=== PATIENT | female | born 1995 | race Caucasian/White ===

== ENCOUNTER 2016-07-11 22:03 | Emergency (ER) | payer BC ==
[~2016-07-11] VITALS: Ht 170.2 cm; Wt 69.5 kg
[2016-07-11 22:05] VITALS: TEMP 36.9; Ht 170.2 cm; Wt 69.5 kg
[2016-07-11] MEDS ORDERED: XYLOCAINE 1%/SOD BICARB 20 ML VIAL INFIL ONE (22:11)
[2016-07-11] MEDS ORDERED: BCPILLS PO (22:57)
[2016-07-11 23:03] VITALS: BP 141/72; PULSE 71; O2SAT 94
--- NOTE | 2016-07-11 23:23 | EMERGENCY ROOM VISIT NOTE ---
History First contact with patient: 22:42 Chief Complaint: LACERATION/CUT (SUT/DERMABOND) Stated Complaint: CUT LEFT HAND Nursing Triage Summary: Patient states "I was trying to get the pit out of the avacodo and the knife went the wrong way". Sustained laceration to left hand. History of Present Illness The patient is a 21 year old female who presents to the Emergency Room with complaints of a laceration between her index and long finger. She was attempting to use a butter knife to pit an avocado and accidentally stabbed herself. The patient denies any significant bleeding, paresthesias or numbness of the hand or fingers. Tetanus immunization is up-to-date. The patient is [id number]. She rates her discomfort a 3 out of 10. Review of Systems 6 system review was performed and was negative except for pertinent positives and negatives as indicated in history of present illness Past Medical/Surgical History Medical Problems: (1) No significant past medical history Surgical Problems: (1) No history of previous surgery Family History Unremarkable Social History Smoking Status: Never Smoker Alcohol Use: none Marital Status: single Occupation Status: [employer] student Current/Historical Medications Scheduled Control Pills ( Control Pills), 1 TAB PO QAM Allergies Coded Allergies: No Known Allergies (Unverified , 07/11/16) Physical Exam Vital Signs Date Time Temp Pulse Resp B/P Pulse Ox O2 Delivery O2 Flow Rate FiO2 07/11/16 23:03 71 20 141/72 94 07/11/16 22:05 36.9 65 20 135/75 96 Room Air Pain Rating (0-10): 0 Physical Exam CONSTITUTIONAL: Healthy and well nourished. Alert and oriented X 3 with positive affect. HEENT: Normocephalic, atraumatic. Pupils equal, round and reactive. MUSCULOSKELETAL: Examination of the left hand shows a 1.5 cm laceration in the webspace between the second and third finger. No active bleeding noted. The patient has good flexion and extension against resistance. INTEGUMENTARY: No rash or other significant dermatologic conditions noted. NEUROLOGIC: Left second and third fingers are sensory intact. Medical Decision & Procedures Procedure Laceration repair was performed under local anesthesia after receiving verbal consent from the patient. Using buffered 1% lidocaine without epinephrine, good local anesthesia was administered. During this procedure, the patient did have a syncopal episode. She was placed in a reverse Trendelenburg position with prompt resolution. The wound was cleansed peripherally with iodine, then copiously pressure irrigated with normal saline. The wound was then approximated using 5-0 nylon simple interrupted sutures. A bacitracin dressing was applied. ED Course Patient history and physical exam were performed. Nurse's notes were reviewed. Laceration repair was performed under local anesthesia. The patient did have a syncopal episode but responded nicely to a reverse Trendelenburg position. The patient was provided additional verbal and written wound care instructions. Ice for swelling. Ibuprofen or Tylenol as needed for pain. Suture removal in 12-14 days, or seek reevaluation sooner for any signs of wound infection. The patient was happy with plan of care, voice understanding of all discharge instructions, and denied any pain, nausea, dizziness or headache at the time of discharge. Medical Decision Impression Primary Impression: Laceration of left hand Additional Impression: Syncope, vasovagal Departure Information Dispostion Home / Self-Care Forms HOME CARE DOCUMENTATION FORM, IMPORTANT VISIT INFORMATION Patient Instructions [facility] Additional Instructions Keep wound clean and dry. Do not allow any crusting or dried blood to accumulate on sutures. If this occurs, use a 1:1 solution of hydrogen peroxide/ water on a Q-tip to clean the wound. Use an antibiotic ointment for 3-4 days, then let wound dry. Suture removal in 12-14 days. Return sooner for any signs of infection (increasing redness, swelling, drainage). Ice and elevate for swelling and pain. Ibuprofen and/or Tylenol as needed for pain. Problem Qualifiers Primary Impression: Laceration of left hand Encounter type: initial encounter Qualified Codes: S61.412A - Laceration without foreign body of left hand, initial encounter
== END 2016-07-11 23:05 | disposition home or self-care (01) ==
LOC: C.EDB 22:06
DX: S61.412A Laceration without foreign body of left hand, initial encounter (principal); W26.0XXA Contact with knife, initial encounter; R55 Syncope and collapse